=== PATIENT | male | born 1980 | race Caucasian/White ===

== ENCOUNTER 2023-03-10 10:22 | Emergency (ER) | payer MEDICAID ==
[~2023-03-10] VITALS: Ht 185.4 cm; Wt 146.0 kg
[2023-03-10] MEDS ORDERED: VANCOMYCIN 1G PREMIX 200 ML IV SCH (12:00)
[2023-03-10 12:48] LABS: BASOPHILS % 0.9 % (0.0-2.0); EOSINOPHILS % 2.6 % (0.0-5.0); HEMATOCRIT. 41.8 % (42.0-52.0); LYMPHOCYTES % 21.8 % (20.0-50.0); MEAN CORPUSCULAR VOLUME 86.3 fL (80.0-94.0); MEAN PLATELET VOLUME 8.5 fl (7.4-10.4); MONOCYTES % 6.6 % (2.0-8.0); NEUTROPHILS % 68.1 % (40.0-76.0); PLATELET 244 x1000/uL (130-400); RED BLOOD CELL COUNT 4.84 mill/uL (4.7-6.1); RED CELL DISTRIBUTION WIDTH 14.1 % (11.6-14.6)
[2023-03-10 13:01] LABS: CHLORIDE 106 mEq/L (98-107)
[2023-03-10] MEDS ORDERED: SULF1TAB48 MT (13:11)
[2023-03-10] MEDS ORDERED: IBUP-2029 MT (13:11)
[2023-03-10] MEDS ORDERED: CEPH500C2 MT (13:11)
[2023-03-10] MEDS ORDERED: CEFTRIAXONE 1GM PREMIX 50 ML IV ONE (14:00)
[2023-03-10] MEDS ORDERED: CEFTRIAXONE SODIUM 1 G/VIAL IM ONE (14:15)
[2023-03-10 14:34] VITALS: BP 138/82
== END 2023-03-10 14:36 | disposition home or self-care (01) ==
LOC: ER 10:50
DX: L03.116 Cellulitis of left lower limb (principal); V19.9XXA Pedal cyclist (driver) (passenger) injured in unspecified traffic accident, initial encounter; Y93.89 Activity, other specified; Y92.89 Other specified places as the place of occurrence of the external cause; Y99.8 Other external cause status
CPT/HCPCS: 36415; 73590; 80053; 83605; 85025; 87040; 96372; 99284; J0696; Z7610